=== PATIENT | male | born 2000 | race American Indian/Alaskan Native ===

== ENCOUNTER 2021-08-05 23:27 | Emergency (ER) | payer MEDICAID, OTHER ==
[2021-08-05 23:41] VITALS: BP 138/90; PULSE 92
--- NOTE | 2021-08-06 00:09 | EDM.PDOC ---
ED HPI GENERAL MEDICAL PROBLEM - General Chief Complaint: ENT Problem Stated Complaint: TEMP 97.1*, STREP THROAT PER PT Time Seen by Provider: 08/06/21 00:00 Source of Information: Reports: Patient History Limitations: Reports: No Limitations - History of Present Illness INITIAL COMMENTS - FREE TEXT/NARRATIVE: Pt is here because he thinks he is getting strep throat. His symptoms started last night. Ibuprofen helps, swallowing makes it worse. His younger brother has been sick with similar symptoms. He notes a fever and chills. No nausea or vomiting. No ear symptoms. No cough or shortness of breath. No known exposure to COVID. Throat Pain Score (Numeric/FACES): 8 - Related Data Allergies Allergy/AdvReac Type Severity Reaction Status Date / Time No Known Allergies Allergy Verified 01/06/16 21:05 Home Meds: Home Meds Ibuprofen [Advil] 200 mg PO Q6H PRN 01/06/16 [History] Past Medical History - Past Health History Medical/Surgical History: Denies Medical/Surgical History HEENT History: Reports: None Cardiovascular History: Reports: None Respiratory History: Reports: None Gastrointestinal History: Reports: None Genitourinary History: Reports: None Musculoskeletal History: Reports: None Neurological History: Reports: None Endocrine/Metabolic History: Reports: None Hematologic History: Reports: None Dermatologic History: Reports: None - Infectious Disease History Infectious Disease History: Reports: None - Past Surgical History Head Surgeries/Procedures: Reports: None Social & Family History - Family History Family Medical History: No Pertinent Family History - Tobacco Use Tobacco Use Status *Q: Never Tobacco User Second Hand Smoke Exposure: No - Caffeine Use Caffeine Use: Reports: Tea - Recreational Drug Use Recreational Drug Use: No ED ROS ENT - Review of Systems Review Of Systems: Comprehensive ROS is negative, except as noted in HPI. ED EXAM, ENT - Physical Exam Exam: See Below Exam Limited By: No Limitations General Appearance: Alert, WD/WN, No Apparent Distress Eye Exam: Bilateral Eye: Normal Inspection Ears: Normal External Exam, Normal Canal, Hearing Grossly Normal Nose: Normal Inspection. No: Nasal Discharge Mouth/Throat: Normal Inspection, Normal Gums, Normal Teeth, Pharyngeal Erythema (mild). No: Muffled Voice, Oral Ulcers, Tonsillar Exudates Head: Atraumatic, Normocephalic Neck: Supple, Non-Tender. No: Lymphadenopathy (L), Lymphadenopathy (R) Respiratory/Chest: No Respiratory Distress, Lungs Clear, Normal Breath Sounds, No Accessory Muscle Use, Chest Non-Tender Cardiovascular: Normal Peripheral Pulses, Regular Rate, Rhythm, No Murmur GI/Abdominal: Soft, Non-Tender (Male) Exam: Deferred Rectal (Males) Exam: Deferred Back: Normal Inspection, Full Range of Motion Extremities: Normal Inspection, Normal Range of Motion, Normal Capillary Refill Neurological: Alert, Oriented, Normal Cognition, No Motor/Sensory Deficits Psychiatric: Normal Affect, Normal Mood Skin: Warm, Dry, Intact, Normal Color, No Rash Course - Vital Signs Last Recorded V/S: Last Vital Signs Temp 97 F 08/05/21 23:39 Pulse 92 08/05/21 23:39 Resp 16 08/05/21 23:39 BP 138/90 08/05/21 23:39 Pulse Ox 96 08/05/21 23:39 - Orders/Labs/Meds Orders: Active Orders 24 hr Category Date Time Status CULTURE STREP A CONFIRMATION [] Stat Lab 08/05/21 23:35 Results STREP SCRN A RAPID W CULT CONF [] Stat Lab 08/05/21 23:35 Results - Re-Assessments/Exams Free Text/Narrative Re-Assessment/Exam: Reviewed negative strep result with the pt. Discussed this is most likely viral and that antibiotics are not indicated at this time. Continue symptomatic treatment with over the counter meds and warm salt water gargles. Pt verbalize understanding. 08/06/21 00:07 Departure - Departure Time of Disposition: 00:07 Disposition: Home, Self-Care 01 Condition: Good Clinical Impression: Pharyngitis Qualifiers: Pharyngitis/tonsillitis etiology: unspecified etiology Qualified Code(s): J02.9 - Acute pharyngitis, unspecified - Discharge Information *PRESCRIPTION DRUG MONITORING PROGRAM REVIEWED*: Not Applicable *COPY OF PRESCRIPTION DRUG MONITORING REPORT IN PATIENT [facility]: Not Applicable Instructions: Sore Throat, [id number] Forms: ED Department Discharge Additional Instructions: Continue symptomatic treatment with over the counter meds and warm salt water gargles. Follow up with your primary care provider in 3-5 days. Sepsis Event Note (ED) - Evaluation Sepsis Screening Result: No Definite Risk - Focused Exam Vital Signs: Vital Signs Temp Pulse Resp BP Pulse Ox 08/05/21 23:39 97 F 92 16 138/90 96 - My Orders Last 24 Hours: My Active Orders 08/05/21 23:35 CULTURE STREP A CONFIRMATION [RM] Stat STREP SCRN A RAPID W CULT CONF [RM] Stat - Assessment/Plan Last 24 Hours: My Active Orders 08/05/21 23:35 CULTURE STREP A CONFIRMATION [RM] Stat STREP SCRN A RAPID W CULT CONF [RM] Stat
== END 2021-08-06 00:15 | disposition home or self-care (01) ==
LOC: DL.ED 23:27
DX: J02.9 Acute pharyngitis, unspecified (principal)
CPT/HCPCS: 87081; 87430; 99283